=== PATIENT | female | born 1980 | race Caucasian/White ===

== ENCOUNTER 2019-07-12 09:10 | Outpatient (CLI) | payer OTHER, SELFPAY ==
--- NOTE | ~2019-07-12 | US_ITS ---
US thyroid INDICATION: Hypothyroidism TECHNIQUE: Real-time sonographic images of the thyroid gland were obtained. COMPARISON: Ultrasound dated 04/24/2018 FINDINGS: The left thyroid gland is surgically absent. There is compensatory enlargement of the right thyroid gland measuring 5.7 x 2.9 x 2.6 cm. Isthmus measures 4 mm. There are nodules in the right lo be, largest measuring 1.3 x 1.2 x 1 cm without significant change from prior study allowing for diffe rences of technique. There is increased vascularity in the right lobe. There is a hypoechoic mass in the right lobe which appears solid, hypoechoic with ill-defined margins and punctate echogenic foci m easuring 11 x 8 x 8 mm. This was not definitely seen on prior examination. IMPRESSION: 1. 11 mm right thyroid mass with internal calcifications. Fine-needle aspiration biopsy recommended. 2: Enlarged right thyroid gland with increased vascularity and multiple additional nodules which kayla ear stable. Reviewed, dictated and finalized at location A. OPATHIC RESIDENT IMPRESSION: 1. 11 mm right thyroid mass with internal calcifications. Fine-needle aspirati on biopsy recommended. 2: Enlarged right thyroid gland with increased vascularity and multiple additi onal nodules which appear stable.
== END 2019-07-12 09:11 | disposition home or self-care (01) ==
PROVIDERS: Visit Provider Physician Assistant
DX: E04.9 Nontoxic goiter, unspecified (principal); E03.9 Hypothyroidism, unspecified
CPT/HCPCS: 76536

== ENCOUNTER 2020-08-21 03:48 | Emergency (ER) | payer OTHER, SELFPAY ==
[2020-08-21 03:49] VITALS: BP 126/92; PULSE 74; RESP 20; TEMP 36.7; O2SAT 99
--- NOTE | 2020-08-21 04:22 | ED.LOWEXIN ---
HPI - Extremity Injury (Lower) General Chief Complaint: Extremity Injury, Lower Stated Complaint: ble pain Source: patient Mode of arrival: ambulatory Limitations: no limitations History of Present Illness HPI Narrative: A 40-year-old female presented to the emergency department with complaints of lower leg pain. Patient notes that this is particularly worse in the right lower extremity over the left. Patient states that she was concerned about a possible blood clot as she had a procedure done today. She states that she had an M. Dougherty is a Lundberg for her uterine fibroids. Patient had this done at an outpatient surgery center in [place]. She states that she did not undergo general anesthesia and only had [place] drugs. Related Data Allergies Allergy/AdvReac Type Severity Reaction Status Date / Time No Known Allergies Allergy Verified 03/23/19 12:14 Review of Systems Review of Systems: Narrative: CONSTITUTIONAL: Denies fever, chills, or sweats. EYES: Denies visual changes, redness, or discharge. ENT: Denies rhinorrhea, congestion, sore throat, or otalgia. CARDIOVASCULAR: Denies chest pain, palpitations, or edema. RESPIRATORY: Denies cough or dyspnea. GASTROINTESTINAL: Denies abdominal pain, nausea, vomiting, or diarrhea. GENITOURINARY: Denies dysuria or hematuria. SKIN: Denies rash or itching. MUSCULOSKELETAL: Denies back pain, joint pain, or myalgia. Pain in the right lower extremity particularly in the popliteal fossa and sole of the foot NEUROLOGIC: Denies headache, numbness, dizziness, or weakness. PSYCHIATRIC: Denies anxiety or depression. [facility] Past Medical History Medical History Hypothyroidism, acquired Nontoxic multinodular goiter Family History Family History Father Hypertension, Onset Age: 54 Mother Family history of diabetes mellitus in first degree relative Family history of thyroid disease Family history of obesity Family history of migraine headaches Family history of malignant neoplasm Grandparent Family history of heart disease in male family member before age 55 Diabetes mellitus Family history of osteoporosis Family history of mental disorder Cerebrovascular accident Family history of arthritis Social History Social History Smoking status: Never smoker Alcohol intake: current Gender identity (if verbalized by the patient): Female Exam Narrative: Exam Narrative: GENERAL: Well-appearing, well-nourished, and in no acute distress. HEAD: Normocephalic, atraumatic. EYES: PERRLA and EOMI. ENT: Nares clear, no rhinorrhea or epistaxis. Mucous membranes moist. Oropharynx without tonsillar hypertrophy exudate or other lesions. Bilateral TMs pearly wilburn nonbulging NECK: Supple. No adenopathy or masses. No carotid bruits or JVD CHEST: Clear to auscultation. No respiratory distress. No wheezes rales or rhonchi HEART: Regular rate and rhythm. No murmur heard. Normal peripheral pulses. ABDOMEN: Soft, nontender, nondistended, normal active bowel sounds. EXTREMITIES: Normal range of motion. No edema. Readily palpable DP pulses bilaterally and PT pulses bilaterally. Cap refill brisk, feet warm to the touch, sensation intact bilaterally SKIN: Warm, dry, no rash. NEURO: No focal deficits. Alert and oriented x3. PSYCH: Normal mood and affect. Course Vital Signs Vital signs: Vital Signs Temperature 36.7 C 08/21/20 03:49 Pulse Rate 74 08/21/20 03:49 Respiratory Rate 20 08/21/20 03:49 Blood Pressure 126/92 H 08/21/20 03:49 Pulse Oximetry 99 08/21/20 03:49 Temperature 36.7 C 08/21/20 03:49 Pulse Rate 74 08/21/20 03:49 Respiratory Rate 20 08/21/20 03:49 Blood Pressure 126/92 H 08/21/20 03:49 Pulse Oximetry 99 08/21/20 03:49 MDM - Extremity Injury (Lower) MDM Narrative Medical decision shivani
[2020-08-21] MEDS: methocarbamoL 750 MG TABLET PO (04:30)
== END 2020-08-21 04:30 | disposition home or self-care (01) ==
PROVIDERS: Emergency Provider Emergency Medicine; Family Provider Internal Medicine
DX: M79.661 Pain in right lower leg (principal); E03.9 Hypothyroidism, unspecified; E04.2 Nontoxic multinodular goiter
CPT/HCPCS: 99283; A9270

== ENCOUNTER 2020-09-23 10:02 | Outpatient (CLI) | payer OTHER, SELFPAY ==
--- NOTE | ~2020-09-23 | US_ITS ---
EXAMINATION: US thyroid DATE: 09/23/2020 10:21 INDICATION: Nontoxic multinodular goiter. TECHNIQUE: Multiple ultrasound images of the thyroid were obtained. COMPARISON: Thyroid ultrasound 07/12/2019, 09/11/2015, 09/30/2014 FINDINGS: The right thyroid lobe measures 5.7 x 2.6 x 2.8 cm. The thyroid lobe demonstrates heterogeneous echog enicity and increased vascularity, consistent with chronic lymphocytic (Tenzin) thyroiditis. In th e right thyroid lobe, there is a 13 mm solid, hypoechoic, talbn-ldqa-tmar nodule with ill-defined mar gin with punctate echogenic foci (TI-RADS TR5), stable from 07/27/19 when fine needle aspiration demo nstrated benign pathology. In the right thyroid lobe, there is a 13 mm solid, hyperechoic, wider-than -tall nodule with ill-defined margin without echogenic foci (TR3), stable from 07/12/19. The left thy roid lobe is absent. IMPRESSION: 1. Stable thyroid nodules, likely not clinically significant. 2. Heterogeneous and hypervascular thyroid, consistent with chronic lymphocytic (Tenzin) thyroidit is. Reviewed, dictated and finalized at location A. NECK HAMMERER IMPRESSION: 1. Stable thyroid nodules, likely not clinically significant. 2. Heterogeneous and hypervascular thyroid, consistent with chronic lymphocytic (Tenzin) thyroiditis.
== END 2020-09-23 10:03 | disposition home or self-care (01) ==
LOC: ANHIMG 10:03
DX: E04.2 Nontoxic multinodular goiter (principal)
CPT/HCPCS: 76536

== ENCOUNTER → 2021-03-24 10:50 | Outpatient (CLI) | payer OTHER, SELFPAY ==
--- NOTE | ~2021-03-24 | XR_ITS ---
EXAMINATION: XR hip LT min 2V DATE: 03/24/2021 11:44 INDICATION: Left hip pain. TECHNIQUE: 2 views of left hip were obtained. COMPARISON: None. FINDINGS: Bone alignment is normal. No fracture. There is severe left hip osteoarthritis. IMPRESSION: 1. Severe left hip osteoarthritis. Reviewed, dictated and finalized at location A.
--- NOTE | ~2021-03-24 | XR_ITS ---
XR chest 2V DATE: 03/24/2021 11:44 INDICATION: Wheezing TECHNIQUE: PA and lateral views COMPARISON: None FINDINGS: Normal heart size. No hilar or mediastinal enlargement. No pulmonary infiltrate or consolid ation, pleural effusion or pulmonary vascular congestion or pneumothorax. Included skeletal structure s are unremarkable. IMPRESSION: Negative Reviewed, dictated and finalized at location A. IMPRESSION: Negative
== END ==
PROVIDERS: PCP Nurse Practitioner; Visit Provider Nurse Practitioner
DX: R06.2 Wheezing (principal); R06.02 Shortness of breath; M16.12 Unilateral primary osteoarthritis, left hip; G89.29 Other chronic pain
CPT/HCPCS: 71046; 73502

== ENCOUNTER 2021-04-10 14:36 | Outpatient (CLI) | payer OTHER, SELFPAY ==
--- NOTE | 2021-04-13 12:05 | WPDPFTINT ---
PFT Procedure Performed PFT Procedure Performed Spirometry with Pre/Post Bronchodilator Plethysmography (Lung Vol) Diffusing Cap (DLCO) Flow Vol Loop PFT Interpretation This is a pulmonary function test with pre and post-bronchodilator spirometry, plethysmography and diffusing capacity. The test was performed and results interpreted in accordance with the 2019 and 2005 ATS/ERS Task Force guidelines respectively using the Global Lung Function Initiative-2012 reference equations. Patient demonstrated good effort and cooperation. Reproducibility criteria were met. The quality of the pre bronchodilator spirometry maneuver was Grade B and post bronchodilator spirometry maneuver was Grade A. Findings: Spirometry: The contour of the inspiratory and expiratory flow tracing are normal. The pre bronchodilator FVC is 4.09, 110% predicted. The pre bronchodilator FEV1 is 3.05 L, 100% predicted. The FEV1: FVC ratio 74%. The post bronchodilator FVC is 4.05 L, representing 1% decrease. The post bronchodilator FEV1 is 3.24 L, representing a 6% increase. Plethysmography: The total lung capacity is 5.40 L, 106% predicted. The functional residual capacity is 2.37 L, 84% predicted. The residual volume is 1.31 L, 82% predicted. Diffusing capacity: The absolute diffusion capacity is 21.7, 91% predicted. The diffusing capacity corrected for alveolar volume is 5.11, 107% predicted. Impression: The spirometry is normal without evidence of an obstructive abnormality. There is no significant improvement after inhaling a single dose of albuterol. The lung volumes are normal. The diffusing capacity is normal. There are no prior studies for comparison
== END 2021-04-10 14:37 | disposition home or self-care (01) ==
PROVIDERS: PCP Nurse Practitioner; Visit Provider Nurse Practitioner
DX: R06.2 Wheezing (principal); R06.02 Shortness of breath
CPT/HCPCS: 94060; 94726; 94729

== ENCOUNTER 2021-08-26 11:09 | Outpatient (CLI) | payer OTHER, SELFPAY ==
[2021-08-26 16:12] LABS: Basophils Absolute Auto 0.1 K/mm3 (0.0-0.1); Basophils Percent Auto 1.3 % (0.2-1.2); Eosinophils Absolute Auto 0.3 K/mm3 (0-0.3); Eosinophils Percent Auto 4.6 % (0-4.4); Hematocrit 38.9 % (37.0-47.0); Hemoglobin 12.9 g/dL (12.0-15.0); Immature Granulocyte Absolute 0.02 K/mm3 (0.00-0.031); Immature Granulocyte Percent A 0.3 % (0-0.5); Lymphocytes Percent Auto 28.3 % (18.3-44.2); Mean Corpuscular HGB Conc 33.2 g/dl (32-36); Mean Corpuscular Hemoglobin 30.9 pg (26-34); Mean Corpuscular Volume 93.1 fl (80-100); Mean Platelet Volume 11.1 fl (7.4-10.4); Monocytes Absolute Auto 0.4 K/mm3 (0.1-0.6); Monocytes Percent Auto 6.3 % (2.6-8.5); Neutrophils Percent Auto 59.2 % (45.5-73.1); Platelet Count Result 296 k/mm3 (150-375); Red Blood Count 4.18 M/mm3 (4.2-5.4); Red Cell Distribution Width 12.6 % (11.5-14.5); White Blood Count 6.7 K/mm3 (4.5-10.0)
[2021-08-26 16:47] LABS: Anion Gap 7 mmol/L (8-16); Blood Urea Nitrogen 11 mg/dL (7-17); Calcium 9.1 mg/dL (8.4-10.2); Carbon Dioxide 27 mmol/L (22-30); Chloride 103 mmol/L (98-107); Cholesterol 178 mg/dL (0-200); Estimated Glomerular Filt Rate > 60; Glucose 88 mg/dL (65-110); HDL Direct 49 mg/dL; Potassium 3.8 mmol/L (3.4-5.0); Sodium 137 mmol/L (137-145); Triglycerides 96 mg/dL (<150)
[2021-08-26 16:57] LABS: LDL Cholesterol Direct 93 mg/dL
[2021-08-26 17:01] LABS: Free T4 Free Thyroxine 1.01 ng/mL (0.78-2.19)
== END 2021-08-26 11:10 | disposition home or self-care (01) ==
LOC: ANHWCLAB 11:11
PROVIDERS: PCP Nurse Practitioner; Visit Provider Internal Medicine Endocrinology, Diabetes & Metabolism
DX: E04.2 Nontoxic multinodular goiter (principal); E03.9 Hypothyroidism, unspecified; Z68.28 Body mass index [BMI] 28.0-28.9, adult
CPT/HCPCS: 36415; 80048; 80061; 84439; 84443; 85025

== ENCOUNTER 2022-04-07 13:36 | Outpatient (CLI) | payer OTHER, SELFPAY ==
--- NOTE | ~2022-04-07 | US_ITS ---
EXAMINATION: US pelvic complete w TV DATE: 04/07/2022 15:07 INDICATION: BN UTERINE BLEEDING TECHNIQUE: Multiple transabdominal and endovaginal sonographic images of the pelvis were obtained. COMPARISON: None. FINDINGS: Uterus: 8.2 x 5.8 x 6.7 cm. Multiple uterine fibroids, the largest measures 1.8 cm. There is a 9 mm s ubmucosal fibroid. Endometrial complex measures 15 mm. Right Ovary: 3.0 x 1.5 x 1.0 cm. Vascular flow is present. Left Ovary: 2.4 x 1.3 x 1.6 cm. Vascular flow is present. 1.5 cm simple cyst There is no free fluid in the pelvis. IMPRESSION: Uterine fibroids including an 8 mm submucosal fibroid. Reviewed, dictated and finalized at location K.
--- NOTE | ~2022-04-07 | MM_ITS ---
EXAMINATION: MM screening yoselyn BI w sharif HISTORY: Screening mammogram TECHNIQUE: Craniocaudal and mediolateral oblique 3-D tomosynthesis images were obtained and synthetic 2-D images were generated. CAD analysis was submitted and interpreted. COMPARISON: No prior mammogram is available for comparison at this institution. BREAST PARENCHYMAL COMPOSITION: There are scattered areas of fibroglandular density. FINDINGS: There is no evidence of suspicious mass, calcification, or architectural distortion to sugg est malignancy in either breast. There has been no suspicious interval change. IMPRESSION: 1. No mammographic evidence of malignancy. 2. Recommend routine screening mammography in one year. BI-RADS Category 1: Negative Reviewed, dictated and finalized at location A.
== END 2022-04-07 13:37 | disposition home or self-care (01) ==
PROVIDERS: PCP Nurse Practitioner; Visit Provider Obstetrics & Gynecology
DX: Z12.31 Encounter for screening mammogram for malignant neoplasm of breast (principal); N93.9 Abnormal uterine and vaginal bleeding, unspecified; D25.9 Leiomyoma of uterus, unspecified
CPT/HCPCS: 76830; 76856; 77063; 77067

== ENCOUNTER 2022-06-28 01:18 | Day surgery (SDC) | payer OTHER, SELFPAY ==
[2022-06-21 08:41] VITALS: BMI 28.3
--- NOTE | 2022-06-21 08:49 | PC.NURSE ---
Report to the Outpatient Waiting Room, entrance under the green pavilion located off [facility], at time __0830 on date __06/28/22__. Planned Procedure Time: _1030_. Time changes happen often and if your time is changed the preop area will call you the afternoon before. - You and your visitor will be asked to self-screen and do not enter if you have any COVID symptoms. - Only one visitor is requested with a max of two and NO children visitors are allowed at this time. - The patient visitor may be requested to leave or wait in car when not with patient due to distancing restrictions. - A mask is optional within the hospital. Patients may have clear liquids (water, carbonated beverages, clear teas, apple juice) until 3 hours prior to surgery with a maximum of 20 ounces. - No food from midnight until time of surgery - Infants may have breast milk until 4 hours before surgery, formula 6 hours prior to surgery. - Children will be allowed to drink immediately following surgery. If applicable, please bring a bottle or sippy cup to assist with drinking. Juice, water, soda, and popsicles are readily available. For infants on formula, please bring formula the day of surgery. Pacifiers are allowed. Take the following medications with a SIP of water the morning of surgery: ____SYNTHROID__ Medications to discontinue per physician NONE Date to take last dose Please no make-up, nail arabic, hairspray, perfume, deodorant, or body powder the day of surgery. No jewelry (including any body piercings) or valuables the day of surgery, leave them at home. Please take a shower or bath the night before, or the morning of, surgery with an antibacterial soap. Wear comfortable, loose fitting clothing. Children are encouraged to wear pajamas. - Jewelry must be removed prior to entering the operating room. Rings and piercings that are not removed may be cut off. - The hospital will not accept responsibility for valuables. - Please leave all valuables, including medications, at home the day of surgery. If you are going home after surgery, a licensed pile driver must drive you home. - NO public transportation without another adult if you receive anesthesia. - We recommend that an adult stay with you for 24 hours following discharge. - We also recommend that you do not drive, make important decision, drink alcoholic beverages, or take any drugs that were not prescribed by your health care provider for at least 24 hours after your discharge time. For Pediatric surgeries, we recommend two adults accompany the child home. Follow any additional instructions given to you from your surgeon. If you or anyone in your household have experienced Covid symptoms in the past week, please notify your surgeon or the nurse liaison at the phone number below for possible testing. Telephone instructions given to PATIENT _and asked if any additional questions and then verbalized understanding. Patient advised to call surgeon office or pre surgery nurse liaison [phone] if any additional questions.
[2022-06-28] VITALS (8 sets, daily range): BP systolic 83–112; BP diastolic 50–77; PULSE 52–94; RESP 12–16; TEMP 36.3; O2SAT 98–100
--- NOTE | 2022-06-28 06:55 | WPDHPUPDATE1 ---
History and Physical Update Update Date/Time: 06/28/22 06:55 History and Physical has been reviewed, including an updated exam of the patient. There are NO changes in the patient's condition. Risks, benefits, and alternatives have been discussed and questions answered. Patient agrees to proceed with procedure.
[2022-06-28] MEDS: ACETAMINOPHEN 500 MG TABLET 1000 MG PO (08:56)
[2022-06-28] MEDS: LACTATED RINGERS 1,000 ML 30 ML IV CONT ×3 (09:02→13:18)
--- NOTE | 2022-06-28 09:05 | WPDANESEPPF ---
Anes - Initial Pre Proc Eval Procedure: Operation Date: 06/28/22 10:30 Proposed Procedures p Hysteroscopy Dilation and Curettage, with Myomectomy, Jess Endometrial Ablation, - Kayli Vee MD Date/Time: 06/28/22 09:05 Surgeon: Kayli Vee MD Pre Op Diagnosis: uterine fibroid, abnormal uterine bleeding Patient Data Age: 42 Gender: F Height: 1.63 m Weight: 75.2 kg Last Vital Signs Temp 36.3 C L 06/28/22 08:41 Pulse 94 06/28/22 08:41 Resp 16 06/28/22 08:41 BP 112/77 06/28/22 08:41 Pulse Ox 100 06/28/22 08:41 O2 Del Method Room Air 06/28/22 08:41 Allergies Allergy/AdvReac Type Severity Reaction Status Date / Time No Known Allergies Allergy Verified 06/28/22 08:53 Home Medications Medication Instructions Recorded Confirmed Type albuterol sulfate 90 mcg/actuation 2 inh inhalation Q4H PRN shortness 03/24/21 06/28/22 Rx aerosol inhaler of breath or wheezing #8.5 grams Synthroid 50 mcg tablet See Rx Instructions .Route 08/26/21 06/28/22 Rx (levothyroxine) .COMPLEX 90 days #120 tabs norethindrone acetate 1.5 1 tablet PO DAILY #63 tabs 04/22/22 06/28/22 Rx mg-ethinyl estradiol 30 mcg tablet Patient hx anesthesia problems: post op nausea/vomiting Family hx anesthesia problems: none Results Review: All pre-operative results and documents have been reviewed as part of the pre-operative evaluation. [facility] Past Medical History Medical History Hypothyroidism, acquired Uterine fibroid Surgical History Surgical History History of gynecological procedure Mirena iud insertion - 07/23/2008 Mirena iud removal - 02/04/2009 History of nasal septoplasty - deviated septum History of thyroid surgery L Thyroid removal - benign nodule History of tubal ligation (~08/16/06) Family History Family History Father Hypertension, Onset Age: 54 Mother Family history of diabetes mellitus in first degree relative Family history of thyroid disease Family history of obesity Family history of migraine headaches Family history of malignant neoplasm Grandparent Family history of heart disease in male family member before age 55 Diabetes mellitus Family history of osteoporosis Family history of mental disorder Cerebrovascular accident Family history of arthritis Social History Social History Smoking status: Never smoker Second hand tobacco smoke exposure: No Alcohol intake: current Drinks per week: 3 Alcohol use details: socially Substance use: never Substance use type: does not use Living arrangements: with family Gender identity (if verbalized by the patient): Female Sexual Orientation (if Verbalized by the Patient): Straight or Heterosexual Anes - Eval Final PreProcedure Day of Procedure 06/28/22 09:05 Patient weight: overweight Heart: regular rate and rhythm Lungs: clear to auscultation Airway: Mallampati scale class II Neurological: alert and oriented Last oral intake: >/= 8 hours ASA classification: II Emergent: no Anesthetic plan: proceed Anesthesia type and monitoring: general GIVS and standard monitoring Results Review: All pre-operative results and documents have been reviewed as part of the pre-operative evaluation. Informed Consent: The patient's anesthetic plan and its attendant risks and benefits were discussed with the patient/family/POA. Questions were solicited and answers provided to the satisfaction of the patient/family/POA.
[2022-06-28] MEDS: SCOPOLAMINE 1.5 MG PATCH TRANSDERM (09:16)
[2022-06-28] MEDS: KETOROLAC 30 MG/ML VIAL (*BKC) IV PUSH (10:31)
--- NOTE | 2022-06-28 11:22 | W.PM.PROC2 ---
Procedure Note - Detailed Date of Procedure 06/28/22 Pre-op Diagnosis uterine fibroid, abnormal uterine bleeding Post-op Diagnosis Same Procedure Performed Hysteroscopic myomectomy, D&C, and Jess endometrial ablation Surgeon Kayli Vee MD Anesthesia MAC Findings Uterus sounded to 10cm; cervix ~4cm. Endometrial cavity significant for thickened tissue throughout and 2 fibroids (left lateral and anterior/fundal) each measuring ~3-4cm, removed in entirety. Jess ablation performed per manufacture instructions w/o issue. Good hemostasis at end of case. The fluid deficit was 140cc. Description of Procedure Jahaira was taken to the operating room where she was placed under sedation without complications. She was then prepped and draped in the usual sterile fashion in the dorsal lithotomy position with her legs in low Souleymane stirrups. A time-out was performed and no perioperative antibiotics were indicated. A bivalve speculum was placed within the vagina where the cervix was easily identified. The anterior lip of the cervix was grasped with a single-tooth tenaculum. The cervix and uterus were then sounded. The Aveta hysteroscope was advanced into the uterine cavity with the above findings noted. Using the Aveta tissue device, the two fibroids were removed. The fundal fibroid was almost a type 0 submucosal fibroid and removed from it's stalk. I continued to morcellate the fibroid in the uterine cavity using the device and then removed the remained 1.5cm portion from the uterine cavity using hysteroscopic forceps. A curettage was then performed until a good uterine cry was felt throughout the uterus. The Jess device was then inserted into the uterine cavity and performed following the manufactures instructions without complications. The device ablated the endometrium without issues and was then removed once the 120 seconds was complete. The hysteroscope was once again advanced into the uterine cavity where the entire cavity was noted to be ablated. Good hemostasis was noted. All instruments were removed from the vagina. Sponge, lap, instrument, and needle counts were correct at the end of the procedure. Patient was awoken from anesthesia and taken to recovery with plans of same-day discharge home. Estimated Blood Loss 5 IV Fluids 1,000 Pathology Yes (endometrial curetting and fibroids) Complications No immediate complications Condition Stable Disposition Same day [facility] Billing Surgery - Charge Forward: Surgery Billing
[2022-06-28] MEDS: ONDANSETRON INJ 4 MG/2 ML VIAL IV PUSH (12:21)
[2022-06-28] MEDS: oxyCODONE HCL (*CRX) 5 MG TAB IR PO (13:21)
--- NOTE | 2022-06-28 14:19 | SUR.PHASEII ---
PATIENT ABLE TO WALK IN ROOM WITHOUT ASSISTANCE AND WITHOUT LIGHT-HEADEDNESS
== END 2022-06-28 14:19 | disposition home or self-care (01) ==
PROVIDERS: PCP Nurse Practitioner; Visit Provider Obstetrics & Gynecology
PROC: 0U5B8ZZ Destruction of Endometrium, Via Natural or Artificial Opening Endoscopic (ICD-10-PCS; CPT 58563; principal; 2022-06-28 10:30)
DX: N93.9 Abnormal uterine and vaginal bleeding, unspecified (principal); D25.0 Submucous leiomyoma of uterus; Z79.51 Long term (current) use of inhaled steroids; E03.9 Hypothyroidism, unspecified
CPT/HCPCS: 58563; 58561; 88305; A9270; J0461; J1885; J2250; J2405; J2704; J3010; J7120